=== PATIENT | male | born 1960 | race Caucasian/White ===

== ENCOUNTER 2019-06-14 06:00 | Inpatient (IN) | payer BC, OTHER ==
[~2019-06-14] VITALS: Ht 188 cm; Wt 106.7 kg
[2019-06-14] MEDS ORDERED: SODIUM CHLORIDE 0.9% 500 ML IVB ONE (07:38)
[2019-06-14] MEDS ORDERED: SODIUM CHLORIDE 0.9% 1,000 ML IV ONE (07:38)
[2019-06-14 07:42] LABS: Basophils # (auto) 0 uL; Eosinophils # (auto) 0 uL; Hematocrit 53.9 % (41.0-53.0); Neutrophils # (auto) 11.5 uL; White Blood Cell 12.9 10^3/uL (4.4-10.8)
[2019-06-14] MEDS ORDERED: metroNIDAZOLE 500MG/100ML 100 ML IV ONE (07:45)
[2019-06-14] MEDS ORDERED: PROMETHAZINE HCL 25 MG/ML 1ML IV PRN (07:45)
[2019-06-14] MEDS ORDERED: HYDROmorphone HCL 2 MG/ML VL IV ONE ×2 (07:45→12:15)
[2019-06-14] MEDS ORDERED: cefTRIAXone 1GM/50ML D5W 50 ML IV ONE (07:45)
[2019-06-14] MEDS ORDERED: PROMETHAZINE HCL 25 MG/ML 1ML IV ONE (08:00)
[2019-06-14 08:03] LABS: Basophils % (auto) 0.4 % (0.0-2.0); Hemoglobin 18.4 g/dL (13.5-17.5); Lymphocytes # (auto) 0.5 uL; Lymphocytes % (auto) 4.1 % (10.0-50.0); Mean Corpuscular Hemoglobin 32.1 pg (28.0-32.0); Mean Corpuscular Volume 94.3 fL (80.0-100.0); Monocytes # (auto) 0.9 uL; Monocytes % (auto) 6.8 % (0.0-12.0); Neutrophils % (auto) 88.7 % (37.0-80.0); Nucleated Red Blood Cells % 0.6 %; Platelet Count (auto) 209 10^3/uL (140-450); Red Blood Cells 5.72 10^6/uL (4.5-5.90); Red Cell Distribution Width 12.9 % (11.8-14.3)
[2019-06-14 08:06] LABS: Albumin 4.3 g/dL (3.4-5.0); Amylase 70 U/L (25-115); Anion Gap 11 (5-15); Blood Urea Nitrogen 18 mg/dL (7-18); Calcium 9.4 mg/dL (8.5-10.1); Carbon Dioxide 23 mmol/L (21-32); Chloride 100 mmol/L (98-107); Glucose 202 mg/dL (74-106); Lipase 158 U/L (73-393); Sodium 134 mmol/L (136-145)
[2019-06-14 08:10] LABS: Alanine Aminotransferase 22 U/L (16-61); Alkaline Phosphatase 83 U/L (45-117); Aspartate Aminotransferase 16 U/L (15-37); BUN/Creatinine Ratio 11.5; Bilirubin, Total 2.2 mg/dL (0.2-1.0); GFR African American 58 mL/min; GFR Non-African American 48 mL/min; Total Protein 9.1 g/dL (6.4-8.2)
[2019-06-14 09:35] LABS: INR 1.12 (0.9-1.15); Partial Thromboplastin Time 26.9 sec (23.64-32.05)
[2019-06-14] MEDS ORDERED: MORPHINE SULF INJ 2 MG/ML SYRINGE 1ML IV PRN ×3 (09:45→12:30)
[2019-06-14] MEDS ORDERED: ONDANSETRON HCL 4 MG/2 ML VIAL IV PRN ×2 (09:45→12:15)
[2019-06-14] MEDS ORDERED: NITROGLYCERIN 0.4 MG SL TAB SL PRN (09:45)
[2019-06-14] MEDS ORDERED: LABETALOL HCL 5 MG/ML 4ML SYRINGE IV PRN (09:45)
[2019-06-14] MEDS ORDERED: SODIUM CHLORIDE 0.9% 1,000 ML IV SCH (09:45)
[2019-06-14] MEDS: PANTOPRAZOLE 40 MG/10 ML VIAL INJ IV SCH ×2 (10:00→22:07)
[2019-06-14] MEDS ORDERED: POVIDONE IODINE 10 % TOPICAL OINT 30GM TOP ONE (10:41)
[2019-06-14] MEDS ORDERED: ROCURONIUM 10MG/ML 10ML VIAL IV ONE (11:08)
[2019-06-14] MEDS ORDERED: fentaNYL CITRATE 100 MCG/2 ML VL ONE (11:08)
[2019-06-14] MEDS ORDERED: MIDAZOLAM HCL 1MG/1ML-2 ML VIAL ONE (11:08)
[2019-06-14] MEDS ORDERED: NEOSTIGMINE 1 MG/ML INJ (10mg/10ML VIAL) IV ONE (11:09)
[2019-06-14] MEDS ORDERED: PROPOFOL 10 MG/ML 20 ML IV ONE (11:09)
[2019-06-14] MEDS ORDERED: GLYCOPYRROLATE 0.2 MG/ML 1ML VIAL IV ONE (11:09)
[2019-06-14] MEDS ORDERED: ePHEDrine SULFATE 50 MG/ML AMP IV PRN (12:15)
[2019-06-14] MEDS ORDERED: hydrALAZINE HCL 20 MG/ML VL IV PRN (12:15)
[2019-06-14] MEDS ORDERED: MORPHINE SULFATE 4 MG/ML SYR/VIAL IV PRN (12:15)
[2019-06-14 13:00] VITALS: BP 145/72
[2019-06-14] MEDS ORDERED: metroNIDAZOLE 500MG/100ML 100 ML IV SCH (14:00)
[2019-06-14] MEDS: metroNIDAZOLE 500MG/100ML 100 ML IV SCH ×2 (14:12→22:07)
[2019-06-14] MEDS: D5W/SOD CHL 0.45%/KCL 20MEQ 1,000 ML IV SCH ×2 (14:18→20:35)
[2019-06-14 17:00] VITALS: BP 156/90
[2019-06-14] MEDS: ACETAMINOPHEN 325 MG TAB PO PRN (17:38)
[2019-06-14 22:14] VITALS: BP 124/70
[2019-06-15 05:00] VITALS: BP 159/86
[2019-06-15] MEDS: D5W/SOD CHL 0.45%/KCL 20MEQ 1,000 ML IV SCH ×3 (05:00→21:35)
[2019-06-15 05:46] LABS: Basophils # (auto) 0 uL; Basophils % (auto) 0.1 % (0.0-2.0); Eosinophils # (auto) 0 uL; Hematocrit 43.1 % (41.0-53.0); Hemoglobin 15.2 g/dL (13.5-17.5); Lymphocytes # (auto) 0.6 uL; Lymphocytes % (auto) 5.9 % (10.0-50.0); Mean Corpuscular Hgb Conc. 35.3 g/dL (32.0-36.0); Mean Corpuscular Volume 93.6 fL (80.0-100.0); Monocytes # (auto) 0.9 uL; Monocytes % (auto) 8.1 % (0.0-12.0); Neutrophils # (auto) 9.5 uL; Neutrophils % (auto) 85.9 % (37.0-80.0); Nucleated Red Blood Cells % 0.1 %; Platelet Count (auto) 130 10^3/uL (140-450); Red Blood Cells 4.61 10^6/uL (4.5-5.90); Red Cell Distribution Width 13.3 % (11.8-14.3); White Blood Cell 11.1 10^3/uL (4.4-10.8)
[2019-06-15 05:52] LABS: INR 1.28 (0.9-1.15); Partial Thromboplastin Time 31.8 sec (23.64-32.05)
[2019-06-15] MEDS: metroNIDAZOLE 500MG/100ML 100 ML IV SCH ×3 (06:01→21:23)
[2019-06-15 06:04] LABS: Albumin 2.9 g/dL (3.4-5.0); Potassium 4.1 mmol/L (3.5-5.1)
[2019-06-15 06:11] LABS: BUN/Creatinine Ratio 14.4; Bilirubin, Total 1.5 mg/dL (0.2-1.0); Calcium 8.6 mg/dL (8.5-10.1); Total Protein 6.8 g/dL (6.4-8.2)
[2019-06-15] MEDS: ACETAMINOPHEN 325 MG TAB PO PRN (08:58)
[2019-06-15] MEDS: PANTOPRAZOLE 40 MG/10 ML VIAL INJ IV SCH ×2 (08:58→21:30)
[2019-06-15] MEDS: levoFLOXacin 500MG 100 ML IV SCH (08:59)
[2019-06-15 09:00] VITALS: BP 150/85
[2019-06-15] MEDS ORDERED: levoFLOXacin 500MG 100 ML IV SCH (10:00)
[2019-06-15] MEDS ORDERED: METOPROLOL TARTRATE 1MG/1ML-5ML VIAL IV ONE (10:15)
[2019-06-15] MEDS: METOPROLOL TARTRATE 25 MG TAB PO SCH ×2 (10:53→21:31)
[2019-06-15 13:00] VITALS: BP 131/76
[2019-06-15] MEDS ORDERED: HYDROcodone-ACET 5/325MG TAB PO PRN ×2 (14:45→15:00)
[2019-06-15] MEDS ORDERED: MORPHINE SULF INJ 2 MG/ML SYRINGE 1ML IV PRN (15:00)
[2019-06-15 16:58] VITALS: BP 142/86
[2019-06-15] MEDS: LABETALOL HCL 5 MG/ML ML 20ML VIAL IV PRN ×2 (17:08→19:32)
[2019-06-15 20:00] VITALS: BP 137/76
[2019-06-15 21:52] VITALS: BP 137/76
[2019-06-16] MEDS: D5W/SOD CHL 0.45%/KCL 20MEQ 1,000 ML IV SCH ×3 (01:00→22:35)
[2019-06-16] MEDS: metroNIDAZOLE 500MG/100ML 100 ML IV SCH ×3 (05:46→22:18)
[2019-06-16 05:58] VITALS: BP 125/70
[2019-06-16 06:00] LABS: Basophils # (auto) 0 uL; Basophils % (auto) 0.2 % (0.0-2.0); Eosinophils # (auto) 0 uL; Eosinophils % (auto) 0.2 % (0.0-7.0); Hematocrit 41.6 % (41.0-53.0); Hemoglobin 14.5 g/dL (13.5-17.5); Lymphocytes # (auto) 0.5 uL; Lymphocytes % (auto) 4.3 % (10.0-50.0); Mean Corpuscular Hemoglobin 32.3 pg (28.0-32.0); Mean Corpuscular Hgb Conc. 34.8 g/dL (32.0-36.0); Mean Corpuscular Volume 92.6 fL (80.0-100.0); Monocytes # (auto) 1.1 uL; Monocytes % (auto) 8.7 % (0.0-12.0); Neutrophils # (auto) 10.7 uL; Neutrophils % (auto) 86.6 % (37.0-80.0); Platelet Count (auto) 135 10^3/uL (140-450); Red Blood Cells 4.49 10^6/uL (4.5-5.90); Red Cell Distribution Width 13.2 % (11.8-14.3); White Blood Cell 12.3 10^3/uL (4.4-10.8)
[2019-06-16 06:29] LABS: Chloride 106 mmol/L (98-107); Potassium 4.2 mmol/L (3.5-5.1); Sodium 133 mmol/L (136-145)
[2019-06-16 06:35] LABS: Alanine Aminotransferase 10 U/L (16-61); Albumin 2.4 g/dL (3.4-5.0); Anion Gap 3 (5-15); Aspartate Aminotransferase 9 U/L (15-37); Bilirubin, Total 1.3 mg/dL (0.2-1.0); Blood Urea Nitrogen 10 mg/dL (7-18); Calcium 7.9 mg/dL (8.5-10.1); Carbon Dioxide 24 mmol/L (21-32); GFR African American 98 mL/min; GFR Non-African American 81 mL/min; Glucose 174 mg/dL (74-106); Total Protein 6.4 g/dL (6.4-8.2)
[2019-06-16 06:38] LABS: Alkaline Phosphatase 51 U/L (45-117)
[2019-06-16 08:29] VITALS: BP 135/69
[2019-06-16] MEDS: PANTOPRAZOLE 40 MG/10 ML VIAL INJ IV SCH ×2 (11:14→22:18)
[2019-06-16] MEDS: levoFLOXacin 500MG 100 ML IV SCH (11:14)
[2019-06-16] MEDS: METOPROLOL TARTRATE 25 MG TAB PO SCH ×2 (11:15→22:19)
[2019-06-16] MEDS: dilTIAZem 120MG ER CAP PO SCH ×2 (11:15→22:19)
[2019-06-16 13:00] VITALS: BP 142/78
[2019-06-16 17:00] VITALS: BP 128/72
[2019-06-16 17:38] VITALS: BP 128/72
[2019-06-16 23:39] VITALS: BP 134/72
[2019-06-17] MEDS: D5W/SOD CHL 0.45%/KCL 20MEQ 1,000 ML IV SCH ×2 (04:21→15:02)
[2019-06-17 05:36] VITALS: BP 142/67
[2019-06-17 05:48] LABS: Basophils # (auto) 0 uL; Basophils % (auto) 0.2 % (0.0-2.0); Eosinophils # (auto) 0.1 uL; Eosinophils % (auto) 0.5 % (0.0-7.0); Hematocrit 43.2 % (41.0-53.0); Hemoglobin 14.7 g/dL (13.5-17.5); Lymphocytes # (auto) 0.5 uL; Lymphocytes % (auto) 4.1 % (10.0-50.0); Mean Corpuscular Hemoglobin 31.8 pg (28.0-32.0); Mean Corpuscular Volume 93.7 fL (80.0-100.0); Monocytes # (auto) 1.3 uL; Monocytes % (auto) 9.8 % (0.0-12.0); Neutrophils # (auto) 11.1 uL; Neutrophils % (auto) 85.4 % (37.0-80.0); Platelet Count (auto) 153 10^3/uL (140-450); Red Blood Cells 4.61 10^6/uL (4.5-5.90)
[2019-06-17] MEDS: metroNIDAZOLE 500MG/100ML 100 ML IV SCH ×2 (05:48→13:06)
[2019-06-17 06:13] LABS: BUN/Creatinine Ratio 11.2; Calcium 8.6 mg/dL (8.5-10.1)
[2019-06-17 08:46] VITALS: BP 135/73
[2019-06-17] MEDS: levoFLOXacin 500MG 100 ML IV SCH (10:00)
[2019-06-17] MEDS: dilTIAZem 120MG ER CAP PO SCH (10:00)
[2019-06-17] MEDS: METOPROLOL TARTRATE 25 MG TAB PO SCH (10:00)
[2019-06-17] MEDS: PANTOPRAZOLE 40 MG/10 ML VIAL INJ IV SCH (10:00)
[2019-06-17 12:41] VITALS: BP 135/73
[2019-06-17 13:00] VITALS: BP 142/80
[2019-06-17 16:34] VITALS: BP 142/91
== END 2019-06-17 16:30 | disposition home or self-care (01) | DRG 338 ==
LOC: ER 06:00 → TELE 06:01 → TELE-WESTW 12:53
PROVIDERS: ADMIT Nurse Practitioner Acute Care; ATTEND Internal Medicine
PROC: 0DTJ4ZZ Resection of Appendix, Percutaneous Endoscopic Approach (ICD-10-PCS; principal; 2019-06-14 11:00)
DX: K35.32 Acute appendicitis with perforation, localized peritonitis, and gangrene, without abscess (principal); N17.0 Acute kidney failure with tubular necrosis; E44.0 Moderate protein-calorie malnutrition; E87.1 Hypo-osmolality and hyponatremia; E87.0 Hyperosmolality and hypernatremia; E11.21 Type 2 diabetes mellitus with diabetic nephropathy; E78.5 Hyperlipidemia, unspecified; E11.22 Type 2 diabetes mellitus with diabetic chronic kidney disease; R00.0 Tachycardia, unspecified; D72.829 Elevated white blood cell count, unspecified; I48.0 Paroxysmal atrial fibrillation; N18.3 Chronic kidney disease, stage 3 (moderate); E11.65 Type 2 diabetes mellitus with hyperglycemia; E78.00 Pure hypercholesterolemia, unspecified; I12.9 Hypertensive chronic kidney disease with stage 1 through stage 4 chronic kidney disease, or unspecified chronic kidney disease; Z85.828 Personal history of other malignant neoplasm of skin
CPT/HCPCS: 36415; 71045; 74176; 80048; 80053; 80061; 82150; 83036; 83690; 83735; 84443; 84484; 85025; 85610; 85730; 86850; 86900; 86901; 87040; 93005; 93306; C9113; G0378; J0696; J1956; J2250; J2704; J3490